=== PATIENT | female | born 1980 | race Hispanic/Latino ===

== ENCOUNTER 2018-06-05 11:12 | Day surgery (SDC) | payer OTHER ==
[2018-06-02 13:28] LABS: Absolute Lymphocytes (CBC) 1.4 K/uL (0.7-4.9); Absolute Monocytes 0.7 K/uL (0.1-1.3); Absolute Neutrophil 3.9 K/uL (1.8-8.0); Basophils % 0.7 % (0-1.3); Eosinophils % 2.5 % (0-4.4); Hematocrit 38.2 % (36.0-45.0); Lymphocytes % 22.8 % (15.3-44.8); MPV 8.3 fL (7.6-11.3); Monocytes % 11.3 % (3.3-12.3); RBC Red Blood Cell Count 4.53 M/uL (3.86-4.86)
[2018-06-02 13:41] LABS: Urine Appearance CLEAR; Urine Bilirubin NEGATIVE (NEG); Urine Blood NEGATIVE (NEG); Urine Color YELLOW; Urine Glucose NEGATIVE (NEG); Urine Protein NEGATIVE (NEG)
[2018-06-02 13:43] LABS: Urine Microscopic Reflex NO UMIC
--- OUTSIDE RECORDS SUMMARY | 2018-06-05 11:22 | XMS REPORT | Summary of Care ---
:1980 Author Organization [facility] Spine [facility] Address [address] [place] [address] [address] [place] [address]- Encounter HQ Encntr_temo(FIN) [id number] Date(s): 05/22/18 - 05/22/18 [facility] Spine [address] [place] [address] [phone] Attending Physician: Kelsi Madrigal MD Referring Physician: Francisco Javier Winkler MD Vital Signs No data available for this section Problem List Condition Effective Dates Status Health Status Informant Anemia(Confirmed) Resolved Migraines(Confirmed) Resolved Allergies, Adverse Reactions, Alerts Substance Reaction Severity Status penicillins Active Medications No data available for this section Results No data available for this section Immunizations No data available for this section Procedures Procedure Date Related Diagnosis Body Site Status Hysterectomy1 Completed Hysteroscopy Completed 22838 Social History Social History Type Response Smoking Status Never smoker; Exposure to Tobacco Smoke None; Cigarette Smoking Last 365 Days No; Reg Smoking Cessation Counseling Yes entered on: 05/21/18 Assessment and Plan No data available for this section
--- OUTSIDE RECORDS SUMMARY | 2018-06-05 11:22 | XMS REPORT | Summary of Care ---
:1980 Author Organization [facility] Neurosurgery [facility] Address [address] [place] [address], [address] [place] [address]- Encounter HQ Omer(VIKA) [id number] Date(s): 05/21/18 - 05/21/18 [facility] [address] [facility], [address] [place] [address] [phone] Discharge Disposition: Home or Self Care Attending Physician: Francisco Javier Winkler MD Referring Physician: Francisco Javier Winkler MD Vital Signs Most recent to oldest [Reference Range]: 1 Height 157.48 cm (05/21/18 2:32 PM) Temperature Oral [96.4-99.1 DegF] 98.1 DegF (05/21/18 2:32 PM) Blood Pressure [90-140/60-90 mmHg] 120/78 mmHg (05/21/18 2:32 PM) Peripheral Pulse Rate [60-100 bpm] 76 bpm (05/21/18 2:32 PM) Weight 54.545 kg (05/21/18 2:32 PM) Body Mass Index 21.99 m2 (05/21/18 2:32 PM) Problem List Condition Effective Dates Status Health Status Informant Anemia(Confirmed) Resolved Migraines(Confirmed) Resolved Allergies, Adverse Reactions, Alerts Substance Reaction Severity Status penicillins Active Medications tizanidine 4 mg oral capsule See Instructions, Take 1 cap po TID prn muscle spasms. not to exceed 3 doses/day , # 30 cap, 0 Refill(s), Pharmacy: [id number], Medication may cause drowsiness. Use caution with driving. Do not mix with alcohol other sedating drugs. Start Date: 05/21/18 Status: Ordered Results No data available for this section Immunizations No data available for this section Procedures Procedure Date Related Diagnosis Body Site Status Hysterectomy1 Completed Hysteroscopy Completed 35313 Social History Social History Type Response Smoking Status Never smoker; Exposure to Tobacco Smoke None; Cigarette Smoking Last 365 Days No; Reg Smoking Cessation Counseling Yes entered on: 05/21/18 Assessment and Plan No data available for this section
--- OUTSIDE RECORDS SUMMARY | 2018-06-05 11:22 | XMS REPORT | Summary of Care ---
:1980 Author Organization [facility] Address [address] [place] [address], [address] [place] [address]- Encounter HQ Encntr_alidavid(FIN) [id number] Date(s): 05/22/18 - 05/22/[address], [address] [place] [address] [phone] Discharge Disposition: Home or Self Care Attending [...] Body Site Status Hysterectomy1 Completed Hysteroscopy Completed 77321 Social History Social History Type Response Smoking Status Never smoker; Exposure to Tobacco Smoke None; Cigarette Smoking Last 365 Days No; Reg Smoking Cessation Counseling Yes entered on: 05/21/18 Assessment and Plan No data available for this section
--- OUTSIDE RECORDS SUMMARY | 2018-06-05 11:22 | XMS REPORT | Summary of Care ---
:1980 Author Organization [facility] Spine [facility] Address [address] [place] [address] [address] [place] [address]- Encounter HQ Karenntr_temo(FIN) [id number] Date(s): 05/21/18 - 05/22/18 [facility] Spine [address] [place] [address] [place] [address] [phone] Vital Signs No data available for this [...] Body Site Status Hysterectomy1 Completed Hysteroscopy Completed 85292 Social History Social History Type Response Smoking Status Never smoker; Exposure to Tobacco Smoke None; Cigarette Smoking Last 365 Days No; Reg Smoking Cessation Counseling Yes entered on: 05/21/18 Assessment and Plan No data available for this section
--- OUTSIDE RECORDS SUMMARY | 2018-06-05 11:22 | XMS REPORT | Summary of Care ---
:1980 Author Organization [facility] Spine [facility] Address [address] [place] [address]- Encounter HQ Encntr_alias(FIN) [id number] Date(s): 12/10/17 - 12/10/17 [facility] Spine [address] [place], [place] [address] [phone] Attending Physician: Kelsi Madrigal MD Referring Physician: [...] Body Site Status Hysterectomy1 Completed Hysteroscopy Completed 85278 Social History Social History Type Response Smoking Status Never smoker; Exposure to Tobacco Smoke None; Cigarette Smoking Last 365 Days No; Reg Smoking Cessation Counseling Yes entered on: 02/13/18 Assessment and Plan No data available for this section
--- OUTSIDE RECORDS SUMMARY | 2018-06-05 11:22 | XMS REPORT | Summary of Care ---
:1980 Author Organization [facility] Spine [facility] Address [address] [place] [address] [address] [place] [address]- Encounter HQ Karenntr_temo(FIN) [id number] Date(s): 11/04/17 - 11/05/17 [facility] Spine [address] [place] [address] [phone] Vital Signs No data available for this [...] Body Site Status Hysterectomy1 Completed Hysteroscopy Completed 24218 Social History Social History Type Response Smoking Status Never smoker; Exposure to Tobacco Smoke None; Cigarette Smoking Last 365 Days No; Reg Smoking Cessation Counseling Yes entered on: 05/21/18 Assessment and Plan No data available for this section
--- OUTSIDE RECORDS SUMMARY | 2018-06-05 11:22 | XMS REPORT | Continuity of Care Document ---
:1980 Author Organization Interface Problems Problem Status Onset Classification Date Comments Source Date Reported Anemia Resolved Problem 05/25/2018 [facility] Migraines Resolved Problem 05/25/2018 [facility] Medications Medication Details Route Status Patient Ordering Order Source Instructions Provider Date tizanidine 4 See Active [facility] mg oral Instructions, 019 Neuro capsule Take 1 cap po TID prn muscle spasms. not to exceed 3 doses/day, # 30 cap, 0 Refill(s), Pharmacy: [facility], Medication may cause drowsiness. Use caution with driving. Do not mix with alcohol other sedating drugs. gabapentin 300 mg=1 cap, Active [facility] 300 MG Oral PO, TID, # 018 Neuro Capsule 270 cap, 0 Refill(s), Pharmacy: [facility] meloxicam 7.5 See Active [facility] mg oral Instructions, 018 Neuro tablet 1 tab po daily with food, # 30 tab, 0 Refill(s), Pharmacy: [facility] gabapentin See Active [facility] 300 MG Oral Instructions, 018 Neuro Capsule PO, Take one cap PO at Bedtime x 3 nights, then 1 cap PO BID x 3 days, then 1 cap PO TID thereafter, # 90 cap, 0 Refill(s), [facility] meloxicam 7.5 7.5 mg=1 tab, Active [facility] mg oral PO, Daily, 018 Neuro tablet Take 1-2 tablets daily with food, # 60 tab, 0 Refill(s), [facility] Ibuprofen 0 Refill(s) Active [facility] 018 Neuro Allergies, Adverse Reactions, Alerts Substance Category Reaction Severity Reaction Status Date Comments Source type Reported penicillins Assertion Drug Active [facility] Immunizations Immunization Date Given Site Status Last Updated Comments Source Results Order Results Value Reference Date Interpretation Comments Source Name Range Vital Signs Vital Sign Value Date Comments Source BMI Calculated 21.99 05/21/2018 [facility] Weight 54.545 05/21/2018 [facility] Height 157.48 cm 05/21/2018 [facility] Heart Rate 76 05/21/2018 [facility] Temperature Oral (F) 98.1 F 05/21/2018 [facility] Systolic (mm Hg) 120 05/21/2018 [facility] Diastolic (mm Hg) 78 05/21/2018 [facility] Weight 53.636 08/19/2017 [facility] Height 154.94 cm 08/19/2017 [facility] BMI Calculated 22.34 08/19/2017 [facility] Heart Rate 76 08/19/2017 [facility] Systolic (mm Hg) 128 08/19/2017 [facility] Diastolic (mm Hg) 82 08/19/2017 [facility] BMI Calculated 22.34 08/19/2017 [facility] Weight 53.636 08/19/2017 [facility] Height 154.94 cm 08/19/2017 [facility] Neuro Heart Rate 76 08/19/2017 [facility] Systolic (mm Hg) 128 08/19/2017 [facility] Diastolic (mm Hg) 82 08/19/2017 [facility] Height 157.48 cm 06/26/2017 [facility] Neuro BMI Calculated 22.36 06/26/2017 [facility] Weight 55.455 06/26/2017 [facility] Neuro Heart Rate 72 06/26/2017 [facility] Systolic (mm Hg) 132 06/26/2017 [facility] Diastolic (mm Hg) 84 06/26/2017 [facility] Neuro Encounters Location Location Encounter Encounter Reason Attending ADM DC Status Source Details Type Number For Provider Date Date Visit MNA Phone [id number] 05/24 05/26 [facility] Neurosurger Message /2017 Neuro y [facility] Spine Phone [id number] 06/14 06/16 [facility] Clinic [facility] Message /2017 Neuro Outpatient [id number] GRACE 06/26 Active [facility] [place] MNA Outpatient [id number] Francisco Javier Baca 06/26 06/27 [facility] /2017 [facility] y [facility] Outpatient [id number] GRACE 07/04 Active [facility] [place] MNA Spine Phone [id number] 07/04 07/06 [facility] Message /2017 Neuro Outpatient [id number] GRACE 07/04 Active [facility] /2018 [place] MNA Outpatient [id number] Francisco Javier Baca 07/04 07/05 [facility] Neurosurger /2017 Neuro y [facility] Spine Ambulatory [id number] Francisco Javier Baca 07/04 07/04 [facility] Pre-Reg /2017 Neuro MNA Spine Phone [id number] 08/06 08/08 [facility] Message /2017 Neuro MNA Spine Phone [id number] 08/14 08/16 [facility] Message /2017 Neuro Outpatient [id number] GRACE 08/19 Active [facility] Outpatient [id number] FRANCISCO JAVIER BACA 08/19 Active [facility] [place] [facility] Spine Outpatient [id number] Francisco Javier Baca 08/19 08/20 [facility] /2017 Neuro MNA Outpatient [id number] Francisco Javier Baca 08/19 08/20 [facility] Neurosurger /2017 Neuro y C Outpatient [id number] GRACE08/20 Active [facility] [place] MNA Spine Outpatient [id number] Francisco Javier Baca 08/20 08/21 [facility] /2017 Neuro MNA Spine Phone [id number] 11/04 11/06 [facility] Message /2017 Neuro Outpatient [id number] GRACE 11/25 Active [facility] Outpatient [id number] GRACE 12/05 Active [facility] [place] Outpatient [id number] GRACE 12/05 Active [facility] [place] Outpatient [id number] CHARLEY STAUFFER 12/05 Active [facility] [place] Outpatient [id number] GRACE 12/10 Active [facility] [place] MNA Spine Ambulatory [id number] Grace 12/10 12/10 [facility] Pre-Reg Jackelin /2017 Neuro Outpatient [id number] CHARLEY STAUFFER 02/13 [facility] [id number] GRACE 03/05 Active [facility] [place] Outpatient [id number] GRACE 03/10 Active [facility] [place] Outpatient [id number] GRACE03/13 Active [facility] [place] Outpatient [id number] GRACE05/21 [facility] [place] M[facility] Spine Phone [id number] 05/21 05/23 [facility] Message /2018 Neuro MNA Outpatient [id number] Francisco Javier Cathi 05/21 05/22 [facility] Neurosurger /[address] [facility] Outpatient [id number] GRACE05/22 [facility] Outpatient [id number] [facility] 05/22 [facility] [place] MNA Spine Ambulatory [id number] Francisco Javier Cathi 05/22 05/22 [facility] Pre-Reg Neuro MNA Outpatient [id number] Francisco Javier Baca 05/22 05/23 [facility] Neurosurger /[address] [facility] Procedures Procedure Code Date Perfomer Comments Source Injection(s), [id number] 08/20/2017 [facility] anesthetic agent Neuro and/or steroid, transforaminal epidural, with imaging guidance (fluoroscopy or CT); lumbar or sacral, single level Injection(s), [id number] 07/05/2017 [facility] anesthetic agent Neuro and/or steroid, transforaminal epidural, with imaging guidance (fluoroscopy or CT); lumbar or sacral, each additional level (List separately in addition to code for primary procedure) Injection(s), [id number] 07/05/2017 [facility] anesthetic agent Neuro and/or steroid, transforaminal epidural, with imaging guidance (fluoroscopy or CT); lumbar or sacral, single level Hysterectomy<sup>1</ [id number] 2016 [facility] sup> Neuro Hysteroscopy [id number] [facility]
[2018-06-05] MEDS ORDERED: CEFAZOLIN/SWI 1gm 2 GM/20 ML SYR ONE (11:30)
[2018-06-05] MEDS ORDERED: Ringers Lactate 1,000 ML IV ONE ×2 (11:30→14:25)
[2018-06-05] MEDS ORDERED: FENTANYL CITR 100 MCG/2 ML ONE (12:02)
[2018-06-05] MEDS ORDERED: PROPOFOL 200 MG/20 ML VIAL IV ONE (12:02)
[2018-06-05] MEDS ORDERED: LIDOCAINE 2% MPF 5 ML VIAL ONE (12:03)
[2018-06-05] MEDS ORDERED: ROCURONIUM 50 MG/5 ML VIAL IV ONE ×2 (12:03→14:54)
[2018-06-05] MEDS ORDERED: MIDAZOLAM HCL 2 MG/2 ML INJ ONE (12:04)
[2018-06-05] MEDS ORDERED: ONDANSETRON 4 MG/2 ML VIAL ONE ×2 (12:04→18:06)
[2018-06-05] MEDS ORDERED: VASOPRESSIN 20 UNIT/ML VIAL ONE (13:21)
[2018-06-05] MEDS ORDERED: NA CHLORIDE 0.9% 100 ML IV ONE (13:21)
[2018-06-05] MEDS ORDERED: KETOROLAC 30 MG/ML INJ ONE (14:19)
[2018-06-05] MEDS ORDERED: DEXAMETHASONE 4 MG/ML VIAL ONE (14:19)
[2018-06-05] MEDS ORDERED: MORPHINE 10 MG/ML VIAL ONE (14:23)
[2018-06-05] MEDS ORDERED: GLYCOPYRROLATE 0.2 MG/ML SYR ONE (15:30)
[2018-06-05] MEDS ORDERED: NEOSTIGMINE 1 MG/ML -10 ML VIAL ONE (15:33)
[2018-06-05] MEDS ORDERED: IBUPROFEN 200 MG TAB PO PRN (15:43)
[2018-06-05] MEDS ORDERED: HYDROCODONE/APAP 5/325 MG TAB PO PRN (15:43)
[2018-06-05] MEDS ORDERED: PROMETHAZINE 25 MG/ML VIAL IV PRN (15:43)
[2018-06-05] MEDS ORDERED: MEPERIDINE HCL 25 MG/0.5 ML IM PRN (15:43)
[2018-06-05] MEDS: HYDROMORPHONE HCL 1 MG/ML INJ ONE ×2 (16:16→16:21)
[2018-06-05] MEDS ORDERED: HYDROCODONE/APAP 5/325 MG TAB ONE (17:05)
--- NOTE | 2018-06-05 20:36 | CON ---
Date of Consultation: 06/05/[address] Bourgeois was doing laparoscopy and she had remove the ovary, and was noted to have a scar tissue right at the vaginal cuff and the part of the sigmoid colon appendage. She was not sure whether the colon itself was attached in the eschar tissue. Therefore, I was consulted. Upon evaluation, we ins ufflated air in the rectum and we got a full distention of the colon and majority of the colon was no t in the area of the scar tissue, and this appeared to be more over the epiploic appendage that was i nvolved. At this time, we utilized a LigaSure to divide that thickened scar tissue, which was done w ithout difficulty and then the bowel was examined. There was no evidence of any bleeding or bowel en teric content seen. The lumen was again insufflated with air and a pool of saline, no bubbles were s een. No direct or indirect evidence of bowel injury was appreciated, and at this point, Dr. Bourgeois continued with the surgery. MAC/LINSEY Voice ID: [id number] Report ID: [id number]
== END 2018-06-05 18:08 | disposition home or self-care (01) ==
LOC: OR 11:12
PROVIDERS: ATTEND Obstetrics & Gynecology
PROC: 0UN14ZZ Release Left Ovary, Percutaneous Endoscopic Approach (ICD-10-PCS; 2018-06-05)
PROC: 0DNN4ZZ Release Sigmoid Colon, Percutaneous Endoscopic Approach (ICD-10-PCS; 2018-06-05)
PROC: 0UT04ZZ Resection of Right Ovary, Percutaneous Endoscopic Approach (ICD-10-PCS; principal; 2018-06-05 12:30)
DX: N83.01 Follicular cyst of right ovary (principal); N73.6 Female pelvic peritoneal adhesions (postinfective); N94.12 Deep dyspareunia; N93.0 Postcoital and contact bleeding; Z88.0 Allergy status to penicillin; Z83.3 Family history of diabetes mellitus; Z82.49 Family history of ischemic heart disease and other diseases of the circulatory system
CPT/HCPCS: 36415; 81003; 85025; 86850; 86900; 86901; 88305; J0690; J1170; J2250; J2405; J2704; J2710; J3010